=== PATIENT | female | born 1995 | race African-American/Black ===

== ENCOUNTER 2020-12-08 04:19 | Emergency (ER) | payer MEDICAID ==
[~2020-12-08] VITALS: Ht 167.6 cm; Wt 50.0 kg
[~2020-12-08 04:19] MED LIST: FERR325T23 MT; IBUP-2030 MT; PREN-55 PO
[2020-12-08 05:47] LABS: BASOPHILS % 0.5 % (0.0-2.0); EOSINOPHILS % 0.7 % (0.0-5.0); HEMATOCRIT. 31.9 % (36.0-48.0); HEMOGLOBIN. 10.4 g/dL (12.0-16.0); MEAN CORPUSCULAR HEMOGLOBIN 27.3 pg (28.0-32.0); MEAN CORPUSCULAR VOLUME 83.4 fL (81.0-99.0); MEAN PLATELET VOLUME 7.6 fl (7.4-10.4); NEUTROPHILS % 49.8 % (40.0-76.0); PLATELET 510 x1000/uL (130-400); RED BLOOD CELL COUNT 3.83 mill/uL (4.2-5.4); RED CELL DISTRIBUTION WIDTH 17.6 % (11.6-14.6)
[2020-12-08 05:55] LABS: CHLORIDE 108 mEq/L (98-107)
[2020-12-08 05:58] LABS: ETHANOL BLOOD < 10 mg/dL
[2020-12-08 06:14] LABS: CLARITY URINE CLOUDY (CLEAR); COLOR URINE YELLOW (YELLOW); KETONES URINE 1+ (NEGATIVE); LEUKOCYTE ESTERASE URINE 2+ (NEGATIVE); NITRITE URINE NEGATIVE (NEGATIVE); OCCULT BLOOD URINE 1+ (NEGATIVE); PH URINE 5.5 (4.5-8.0); PROTEIN URINE 3+ (NEGATIVE)
[2020-12-08 06:38] LABS: *BARBITURATES SCREEN URINE NEGATIVE (NEGATIVE); *BENZODIAZEPINES SCREEN URINE NEGATIVE (NEGATIVE); *COCAINE SCREEN URINE NEGATIVE (NEGATIVE)
[2020-12-08 06:39] LABS: *AMPHETAMINES SCREEN URINE PRESUMTIVE POSITIVE (NEGATIVE); METHADONE URINE SCREEN NEGATIVE (NEGATIVE); OPIATES URINE SCREEN NEGATIVE (NEGATIVE); PHENCYCLIDINE URINE SCREEN NEGATIVE (NEGATIVE)
[2020-12-08 06:40] LABS: CANNABINOID URINE SCREEN PRESUMTIVE POSITIVE (NEGATIVE)
[2020-12-08 10:18] VITALS: BP 138/97
== END 2020-12-08 10:44 | disposition home or self-care (01) ==
LOC: ER 05:12
DX: F19.10 Other psychoactive substance abuse, uncomplicated (principal); F32.9 Major depressive disorder, single episode, unspecified
CPT/HCPCS: 36415; 80053; 80305; 80320; 81003; 81025; 82962; 85025; 99285; G0480

== ENCOUNTER 2022-04-02 03:56 | Emergency (ER) | payer MEDICAID ==
[~2022-04-02] VITALS: Ht 167.6 cm; Wt 77.0 kg
[~2022-04-02 03:56] MED LIST changes: +ONDA4TAB5 MT
[2022-04-02 05:50] VITALS: BP 130/76
== END 2022-04-02 06:10 | disposition left against medical advice (07) ==
LOC: ER 03:56
DX: Z53.21 Procedure and treatment not carried out due to patient leaving prior to being seen by health care provider (principal); F32.9 Major depressive disorder, single episode, unspecified